=== PATIENT | female | born 1990 | race Caucasian/White ===

== ENCOUNTER 2017-09-06 18:55 | Emergency (ER) | payer BC, OTHER ==
[~2017-09-06] VITALS: Ht 149.9 cm; Wt 74.8 kg
[~2017-09-06 18:55] MED LIST: DEPER500 PO
[2017-09-06 19:05] VITALS: BP 115/77
[2017-09-06 19:34] VITALS: BP 113/76
== END 2017-09-06 19:34 | disposition home or self-care (01) ==
LOC: MED 18:55
DX: A09 Infectious gastroenteritis and colitis, unspecified (principal); Z90.49 Acquired absence of other specified parts of digestive tract
CPT/HCPCS: 81002; 81025; 99283